=== PATIENT | female | born 1935 | race Two or more races ===

== ENCOUNTER 2024-02-14 14:12 | Emergency (ER) | payer OTHER ==
[~2024-02-14] VITALS: Ht 157.5 cm; Wt 54.4 kg
[2024-02-14] MEDS ORDERED: AMLODIPINE-OLM1 EAC2 PO (15:11)
[2024-02-14] MEDS ORDERED: SIMVASTATIN5 MG PO (15:11)
[2024-02-14] MEDS ORDERED: COZAAR50 MG PO (15:11)
[2024-02-14] MEDS ORDERED: GLIPIZIDE XL5 MG PO (15:11)
[2024-02-14] MEDS ORDERED: LIDOCAINE HCL 1% 10ML VIAL ONE (15:36)
[2024-02-14] MEDS ORDERED: TETANUS DIPHTHERIA TOX. ADSOR 5 ML VIAL IM ONE (15:37)
[2024-02-14] MEDS ORDERED: TETANUS & DIPHTHERIA TOX,ADULT 0.5 ML VIAL IM ONE (15:45)
[2024-02-14] MEDS ORDERED: LIDOCAINE HCL 1% 10ML VIAL IJ ONE (15:45)
== END 2024-02-14 18:24 | disposition home or self-care (01) ==
LOC: ER 14:14
DX: S01.111A Laceration without foreign body of right eyelid and periocular area, initial encounter (principal); S09.90XA Unspecified injury of head, initial encounter; W19.XXXA Unspecified fall, initial encounter; Y93.89 Activity, other specified; Y92.89 Other specified places as the place of occurrence of the external cause; Y99.8 Other external cause status; I10 Essential (primary) hypertension; E11.9 Type 2 diabetes mellitus without complications; Z88.0 Allergy status to penicillin
CPT/HCPCS: 12011; 70450; 90471; 90714; 96372; 99284; J1670

== ENCOUNTER 2024-02-19 09:31 | Emergency (ER) | payer OTHER ==
[~2024-02-19] VITALS: Ht 157.5 cm; Wt 52.2 kg
[~2024-02-19 09:31] MED LIST: AMLODIPINE-OLM1 EAC2 PO; COZAAR50 MG PO; GLIPIZIDE XL5 MG PO; SIMVASTATIN5 MG PO
== END 2024-02-19 13:41 | disposition home or self-care (01) ==
LOC: ER 09:33
DX: Z48.02 Encounter for removal of sutures (principal); Z88.0 Allergy status to penicillin

== ENCOUNTER 2024-02-22 07:16 | Emergency (ER) | payer OTHER ==
[~2024-02-22] VITALS: Ht 160 cm; Wt 54.4 kg
== END 2024-02-22 09:47 | disposition home or self-care (01) ==
LOC: ER 07:18
DX: Z48.02 Encounter for removal of sutures (principal); S01.80XA Unspecified open wound of other part of head, initial encounter; Z88.0 Allergy status to penicillin